=== PATIENT | female | born 1960 | race Caucasian/White ===

== ENCOUNTER 2022-08-29 22:26 | Emergency (ER) | payer SELFPAY ==
[~2022-08-29] VITALS: Ht 162.6 cm; Wt 51.0 kg
[2022-08-29] MEDS ORDERED: ONDANSETRON HCL 4MG/2ML INJ IV ONE (23:30)
[2022-08-29] MEDS ORDERED: MORPHINE SULFATE 4 MG/ML CPJ (NOT FOR IM USE) IV ONE (23:30)
[2022-08-29 23:45] LABS: HEMATOCRIT. 39.9 % (36.0-48.0); HEMOGLOBIN. 13.5 g/dL (12.0-16.0); MEAN CORPUSCULAR HEMOGLOBIN 32.6 pg (28.0-32.0); MEAN PLATELET VOLUME 8.4 fl (7.4-10.4); PLATELET 221 x1000/uL (130-400); RED BLOOD CELL COUNT 4.15 mill/uL (4.2-5.4)
[2022-08-29 23:57] LABS: PARTIAL THROMBOPLASTIN TIME 24.8 sec (23.4-31.0); PROTHROMBIN TIME 10.8 sec (9.6-11.0)
[2022-08-30 00:04] LABS: CHLORIDE 100 mEq/L (98-107)
[2022-08-30] MEDS ORDERED: IOHEXOL-300 100 ML BOTTLE ONE (02:53)
[2022-08-30 03:48] LABS: PLATELET ESTIMATE NORMAL
[2022-08-30 04:04] VITALS: BP 113/69
== END 2022-08-30 04:06 | disposition home or self-care (01) ==
LOC: ER 22:37
DX: K40.90 Unilateral inguinal hernia, without obstruction or gangrene, not specified as recurrent (principal); K56.609 Unspecified intestinal obstruction, unspecified as to partial versus complete obstruction; I10 Essential (primary) hypertension
CPT/HCPCS: 36415; 74177; 80053; 83605; 83690; 85025; 85610; 85730; 86850; 86900; 86901; 96374; 96375; 99285; J2270; J2405; Q9967